=== PATIENT | female | born 1955 | race Caucasian/White ===

== ENCOUNTER → 2021-01-22 | Outpatient (CLI) | payer MEDICARE, OTHER ==
[~2021-01-22] MED LIST: ABILIFY 2 MG2 MG PO; CYMBALTA60 MG PO; GLUCOPHAGE500 MG PO; LISINOPRIL10 MG PO; VICODIN 5-3001 EACH PO
== END ==
LOC: M.RAD 13:17
PROVIDERS: ATTEND Family Medicine
DX: Z12.31 Encounter for screening mammogram for malignant neoplasm of breast (principal); Z13.820 Encounter for screening for osteoporosis; M81.0 Age-related osteoporosis without current pathological fracture